=== PATIENT | male | born 1980 | race Caucasian/White ===

== ENCOUNTER 2021-04-26 16:22 | Emergency (ER) | payer OTHER, SELFPAY ==
[2021-04-26 16:34] VITALS: BP 125/75; PULSE 76; RESP 16; TEMP 35.9; O2SAT 99
--- NOTE | 2021-04-26 16:56 | ED.ABDPAIN ---
HPI - Abdominal Pain General Chief Complaint: Abdominal Pain Stated Complaint: Abdominal Pain Time Seen by Provider: 04/26/21 16:57 Source: patient, RN notes reviewed and old records reviewed Mode of arrival: ambulatory Limitations: no limitations History of Present Illness HPI narrative: 40-year-old male who presents to [facility] with complaints of abdominal pain in lateral right abdomen area for 1 week with radiation of pain to the scapula area for the past few days. Patient states that he had some nausea with one emesis about 2 days ago. Patient states that he has a lot of gas on his stomach, has some tightness in his abdomen but denies any sharp pain. Patient states that he knows he has gall stones and thought he could come here to get order for CT scan of his abdomen and referral for surgeon. Offer of medication for nausea denied. Patient denies any urinary symptoms. MD elicited complaint: abdominal pain and flank pain Related Data Home Medications Medication Instructions Recorded Confirmed No Home Medications 04/26/21 04/26/21 Allergies Allergy/AdvReac Type Severity Reaction Status Date / Time No Known Allergies Allergy Verified 04/26/21 16:52 Review of Systems Review of Systems: CONSTITUTIONAL: Denies fever, chills, or sweats. EYES: Denies visual changes, redness, or discharge. ENT: Denies rhinorrhea, congestion, sore throat, or otalgia. CARDIOVASCULAR: Denies chest pain, palpitations, or edema. RESPIRATORY: Denies cough or dyspnea. GASTROINTESTINAL: Positive right lateral abdominal pain some radiation to right scapula, some nausea, vomiting, no diarrhea. patient states stools light colored but formed. GENITOURINARY: Denies dysuria or hematuria. SKIN: Denies rash or itching. MUSCULOSKELETAL right scapula pain, joint pain, or myalgia. NEUROLOGIC: Denies headache, numbness, or weakness. PSYCHIATRIC: Positive history of anxiety or depression. All systems reviewed & are unremarkable except as noted in HPI and below PMFSH Past Medical History Medical History (Updated 04/27/21 @ 09:53 by Izzy Whitt NP) Anxiety Family History Family History (Updated 04/27/21 @ 09:54 by Izzy Whitt NP) Mother Leukemia Grandparent Leukemia Social History Social History (Updated 04/26/21 @ 18:14 by Izzy Whitt NP) Smoking status: Never smoker Alcohol intake: unknown Substance use: unknown Living arrangements: with family Gender identity (if verbalized by the patient): Male Comments At time of signature, agree with nursing past medical, surgical, social and family history. There is no relevant family history pertinent to the presenting complaint Exam Narrative: GENERAL: Well-appearing, well-nourished, and in no acute distress. HEAD: Normocephalic, atraumatic. EYES: PERRLA and EOMI. ENT: Nares clear, no rhinorrhea or epistaxis. Mucous membranes moist.TM normal , throat with no redness or lesions or tonsil enlargement NECK: Supple. no lymphadenopathy CHEST: Clear to auscultation. No respiratory distress.SAO2 99% on room air HEART: Regular rate and rhythm. No murmur heard. Normal peripheral pulses. ABDOMEN: Soft, nontender, to palpation, negative for Thoams's sign, nondistended, normal active bowel sounds.reports upset stomach today. EXTREMITIES: Normal range of motion. No edema. SKIN: Warm, dry, no rash. NEURO: No focal deficits. Alert and oriented x3. Course Course Level of Care: Express Care Visit Vital Signs Vital signs: Vital Signs Temperature 35.9 C L 04/26/21 16:34 Pulse Rate 76 04/26/21 16:34 Respiratory Rate 16 04/26/21 16:34 Blood Pressure 125/75 04/26/21 16:34 Pulse Oximetry 99 04/26/21 16:34 Temperature 35.9 C L 04/26/21 16:34 Pulse Rate 76 04/26/21 16:34 Respiratory Rate 16 04/26/21 16:34 Blood Pressure 125/75 04/26/21 16:34 Pulse Oximetry 99 04/26/21 16:34 MDM - Abdominal Pain Differential Diagnosis Differential diagnosis:
== END 2021-04-26 17:39 | disposition left against medical advice (07) ==
PROVIDERS: Emergency Provider Registered Nurse; PCP Family Medicine
DX: R10.31 Right lower quadrant pain (principal); K80.80 Other cholelithiasis without obstruction
CPT/HCPCS: 99211; G0463

== ENCOUNTER → 2021-04-27 13:46 | Outpatient (CLI) | payer OTHER, SELFPAY ==
--- NOTE | ~2021-04-27 | US_ITS ---
EXAMINATION: US right upper quadrant DATE: 04/27/2021 14:10 INDICATION: Right upper quadrant abdominal pain TECHNIQUE: Multiple grayscale and Doppler ultrasound images of the abdomen were obtained. COMPARISON: None FINDINGS: The region of the pancreas is obscured by shadowing bowel gas. Liver has normal echogenicity and cont our, with a smooth surface. No liver lesion identified. No intrahepatic biliary duct dilation suspect ed. Portal venous flow was seen in the hepatopetal, normal direction and has normal Doppler waveform. Multiple mobile shadowing gallstones are seen within the partially obscured gallbladder. No evident d ilation or wall thickening. Sonographic Thomas sign was reported as negative by the nuclear process engineer.Tracy l caliber common bile duct measuring up to 4 mm in maximal diameter. Visualized portions of the abdom inal aorta are normal in caliber measuring 2.5 cm proximally, 1.9 cm the mid aorta and 2.1 cm in the distal aorta. The intrahepatic portion of the inferior vena cava appears normal. The more distal infe rior vena cava is obscured. Right kidney measures 11.4 cm in length with normal contour and echogenic ity and no hydronephrosis. IMPRESSION: 1. Cholelithiasis. Reviewed, dictated and finalized at location B. GER PURCHASING IMPRESSION: 1. Cholelithiasis.
== END ==
PROVIDERS: PCP Family Medicine; Visit Provider Family Medicine
DX: R10.11 Right upper quadrant pain (principal); K80.20 Calculus of gallbladder without cholecystitis without obstruction
CPT/HCPCS: 76705

== ENCOUNTER 2022-11-03 18:46 | Emergency (ER) | payer OTHER, SELFPAY ==
--- NOTE | ~2022-11-03 | XR_ITS ---
EXAMINATION: XR hand LT min 3V DATE: 11/03/2022 19:02 INDICATION: Left hand injury and pain. TECHNIQUE: 3 views of left hand were obtained. COMPARISON: None. FINDINGS: Bone alignment is normal. There is a punctate calcification palmar to base of fourth middle phalanx. There is mild osteoarthritis of first carpometacarpal joint. No radiopaque foreign body. IMPRESSION: 1. Punctate calcification palmar to base of fourth middle phalanx, which may be an acute avulsion fra cture or a chronic finding. Reviewed, dictated and finalized at location E. IMPRESSION: 1. Punctate calcification palmar to base of fourth middle phalanx, which may be an acute avulsion fracture or a chronic finding.
[2022-11-03 18:53] VITALS: BP 119/75; PULSE 98; RESP 16; TEMP 36.4; O2SAT 99
--- NOTE | 2022-11-03 18:56 | ED.SKABFB ---
HPI - Skin/Abscess/Foreign Bdy General Chief complaint: Extremity Injury, Upper Stated complaint: Left Hand Pain Time Seen by Provider: 11/03/22 18:55 Source: patient Mode of arrival: ambulatory Limitations: no limitations History of Present Illness HPI narrative: Porter is a 42-year-old male patient presenting to the clinic today with complaints of left hand injury after he shot a nail gun into a piece of wood and had his hand on the opposite side of the wood and it went through his hand webbing in between the proximal left 3rd and 4th finger. Has redness and swelling to the area and is having pain and difficulty with PIP flexion of the 4th finger. Tetanus status is not up-to-date Related Data Allergies Allergy/AdvReac Type Severity Reaction Status Date / Time No Known Allergies Allergy Verified 11/03/22 18:48 Review of Systems Review of Systems: Pertinent positives per HPI. Patient denies any fever, chills, rash, headache, visual changes, dizziness, cough, shortness of breath, chest pain, palpitations, nausea, vomiting, diarrhea, constipation, abdominal pain, or any urinary issues. PMFSH Past Medical History Medical History Anxiety Family History Family History Mother Leukemia Grandparent Leukemia Social History Social History Smoking status: Never smoker Alcohol intake: unknown Substance use: unknown Living arrangements: with family Gender identity (if verbalized by the patient): Male Comments At the time of my signature, I reviewed and agree with the nursing past medical, surgical, social, and family history. There is no relevant family history pertinent to the patient complaint. Exam Narrative: General: Well-developed, well nourished, in no apparent distress Head: Normocephalic, atraumatic. Cardio: Regular rate and rhythm, s1 and s2 normal, no murmur appreciated. Resp: Clear to auscultation bilaterally, no rhonchi, rales, wheezing or rubs. Integumentary: [place], warm, and dry, intact without lesion, red, raised, swollen puncture wound to the left distal webbing of the hand just proximal to the 3/4 digit Course Course Emergency Course: Portions of this record may have been created with voice recognition software. Level of Care: Express Care Visit Vital Signs Vital signs: Vital Signs Temperature 36.4 C 11/03/22 18:53 Pulse Rate 98 11/03/22 18:53 Respiratory Rate 16 11/03/22 18:53 Blood Pressure 119/75 11/03/22 18:53 Pulse Oximetry 99 11/03/22 18:53 Oxygen Delivery Room Air 11/03/22 18:53 Temperature 36.4 C 11/03/22 18:53 Pulse Rate 98 11/03/22 18:53 Respiratory Rate 16 11/03/22 18:53 Blood Pressure 119/75 11/03/22 18:53 Pulse Oximetry 99 11/03/22 18:53 Oxygen Delivery Room Air 11/03/22 18:53 Vital signs reviewed MDM - Skin/Abscess/Foreign Bdy MDM Narrative Medical decision making narrative: At the time of visit patient is resting comfortably on the exam table. He has a puncture wound to the left hand proximal to the 4th finger with redness and swelling and difficulty bending his 4th finger. X-ray shows possible acute avulsion fracture of the right 4th middle phalanx. Differential Diagnosis Differential diagnosis: Likely other (Infected puncture wound, finger fracture, hand fracture, soft tissue swelling) Imaging Data Radiologist's impression: Close Hand X-Ray (Signed) [email or web address] - 11/03/22 Launch?[facility] [address] [place] [id number] XRay Report Signed Patient: Porter Mireles : 1980 MR#: [id number] Age/Sex: 42 / M Acct:[id number] Loc: [facility]? ? ADM Date: 11/03/22Attending Dr: Ordering Physician: Dung Garcia APR
[2022-11-03] MEDS: TETANUS,DIPHTHERIA,AC PERTUSSIS ADULT (0.5 ML) BOOSTRIX IM (19:04)
--- NOTE | 2022-11-03 19:24 | PC.NURSE ---
pharmacy order entry technician in with pt.
== END 2022-11-03 19:38 | disposition home or self-care (01) ==
PROVIDERS: Emergency Provider Nurse Practitioner Family; PCP Family Medicine
DX: S61.432A Puncture wound without foreign body of left hand, initial encounter (principal); S62.625A Displaced fracture of middle phalanx of left ring finger, initial encounter for closed fracture; W29.4XXA Contact with nail gun, initial encounter; Z23 Encounter for immunization
CPT/HCPCS: 29130; 73130; 90471; 90715; 99214; G0463